=== PATIENT | female | born 1955 | race Caucasian/White ===

== ENCOUNTER 2017-08-03 16:49 | Emergency (ER) | payer OTHER ==
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
[2017-08-03 18:41] VITALS: BP 166/86
== END 2017-08-03 18:43 | disposition home or self-care (01) ==
LOC: EDUNIT#
DX: S49.91XA Unspecified injury of right shoulder and upper arm, initial encounter (principal); S09.90XA Unspecified injury of head, initial encounter; I10 Essential (primary) hypertension; V49.40XA Driver injured in collision with unspecified motor vehicles in traffic accident, initial encounter; Y92.410 Unspecified street and highway as the place of occurrence of the external cause; Y99.8 Other external cause status; Y93.89 Activity, other specified

== ENCOUNTER → 2017-11-24 | Outpatient (CLI) | payer OTHER ==
[~2017-11-24] MED LIST: IOPAMIDOL (ISOVUE 370) 100 ML BTL IV ONE
== END ==
LOC: FIMAGING 10:53
PROVIDERS: ATTEND Internal Medicine Cardiovascular Disease
DX: Z01.810 Encounter for preprocedural cardiovascular examination (principal); I48.91 Unspecified atrial fibrillation; E04.1 Nontoxic single thyroid nodule; N63.20 Unspecified lump in the left breast, unspecified quadrant
CPT/HCPCS: Q9967

== ENCOUNTER → 2017-11-30 | Outpatient (CLI) | payer OTHER | LOC: BRMIMAGING 13:58 | DX: E04.2 Nontoxic multinodular goiter (principal) ==

== ENCOUNTER 2018-03-02 07:15 | Observation (INO) | payer OTHER ==
[2018-03-02] MEDS ORDERED: NS 1,000 ML IV ONE (07:16)
[2018-03-02 07:58] LABS: PLATELET COUNT 205 10^3/uL (150-400)
[2018-03-02] MEDS ORDERED: IOPAMIDOL (ISOVUE-300) 100 ML BTL ONE ×2 (07:59→10:33)
[2018-03-02] MEDS ORDERED: LIDOCAINE 1% 300 MG/30 ML SDV ONE (07:59)
[2018-03-02] MEDS ORDERED: BUPIVACAINE 0.75% 10 ML SDV ONE (07:59)
[2018-03-02] MEDS ORDERED: HEPARIN 10,000 UNIT/10 ML MDV (1,000 UNIT/ML) ONE (07:59)
[2018-03-02] MEDS ORDERED: HEPARIN/DEXTROSE 25,000 UNIT/500 ML BAG ONE (08:00)
[2018-03-02 08:09] LABS: INR 0.95 (0.83-1.16); PROTIME(PATIENT) 12.9 SEC (12.0-15.0)
--- NOTE | 2018-03-02 08:23 | PDGENHP ---
History & Physical Chief Complaint: afib, symptomatic Relevant Physical Exam: s1s2 rrr cta ao3 Cardiorespiratory Assessment: for igor and afib ablation
--- NOTE | 2018-03-02 08:39 | PDANEPAE ---
ANE History of Present Illness parox a-fib s/f ablation ANE Past Medical History - Cardiovascular History Hx Hypertension: Yes Hx Palpitations: Yes Cardiovascular History Comment: a fib - Pulmonary History Hx Oxygen in Use at Home: No Hx Sleep Apnea: No - Endocrine History Hx Diabetes: No Endocrine History Comment: dyslipidemia ANE Review of Systems Review of Systems: - Exercise capacity Exercise capacity: >=4 METS ANE Patient History - Allergies Allergies/Adverse Reactions: No Known Allergies Allergy (Verified 02/23/18 10:40) - Home Medications Home medications: home medication list seen and reviewed Home Medications: Atorvastatin Calcium [Lipitor 40 mg (*)] 40 mg PO HS 11/24/17 [Last Taken Unknown] Lisinopril [Zestril 10 mg (*)] 10 mg PO HS 11/24/17 [Last Taken Unknown] Metoprolol Tartrate [Lopressor 25 mg (*)] 25 mg PO BID 11/24/17 [Last Taken Unknown] Rivaroxaban [Xarelto] 20 mg PO HS 11/24/17 [Last Taken Unknown] Clindamycin 1% [Cleocin 1%] 1 ml TP BID PRN 02/23/18 [Last Taken Unknown] Triamcinolone 0.1% [Triamcinolone 0.1% Cream (*)] 1 alfredo TP BID PRN 02/23/18 [ Last Taken Unknown] - NPO status NPO Status: no food or drink >8 hours - Anes Hx Anes Hx: no prior problems - Smoking Hx Smoking Status: Former smoker - Alcohol Use Alcohol Use: None - Family Anes Hx Family Anes Hx: none ANE Labs/Vital Signs - Labs Result Diagrams: 03/02/18 07:40 03/02/18 07:40 - Vital Signs Height: 155 cm Weight: 83.9 kg ANE Physical Exam - Airway Neck exam: FROM Mallampati Score: Class 2 - Pulmonary Pulmonary: no respiratory distress - Cardiovascular Cardiovascular: regular rate and rhythym - ASA Status ASA Status: III ANE Anesthesia Plan Anesthesia Plan: general endotracheal anesthesia
[2018-03-02] MEDS ORDERED: PROPOFOL/EMULSION 500 MG/50 ML BOTTLE IV ONE ×2 (08:50→10:12)
[2018-03-02] MEDS ORDERED: REMIFENTANIL HCL 1 MG VIAL ONE ×2 (08:50→10:12)
[2018-03-02] MEDS ORDERED: fentaNYL 100 MCG/2 ML INJ ONE ×2 (08:50→12:09)
[2018-03-02] MEDS ORDERED: ePHEDrine SULFATE 25 MG/5 ML SYR ONE ×2 (09:01→11:05)
[2018-03-02] MEDS ORDERED: DEXAMETHASONE 4 MG/ML VIAL ONE (09:13)
--- NOTE | 2018-03-02 11:02 | CPEKG ---
Test Reason : OPEN Blood Pressure : / mmHG Vent. Rate : 074 BPM Atrial Rate : 075 BPM P-R Int : 154 ms QRS Dur : 093 ms QT Int : 391 ms P-R-T Axes : 026 015 037 degrees QTc Int : 434 ms Sinus rhythm Confirmed by Gary Cm ([id number]) on 03/02/2018 11:02:02 AM Referred By: Confirmed By:Gary Cm
[2018-03-02] MEDS ORDERED: ONDANSETRON 4 MG/2 ML VIAL ONE ×2 (11:09→12:03)
[2018-03-02] MEDS ORDERED: PROTAMINE SULFATE 50 MG/5 ML VIAL IVP ONE (11:13)
--- NOTE | 2018-03-02 11:25 | EPPROC ---
Electrophysiology Procedure Note: ELECTROPHYSIOLOGIC STUDY AND BALLOON-CATHETER MEDIATED CRYOABLATION FOR PAROXYSMAL ATRIAL FIBRILLATION Procedures performed: 45127-77 EP evaluation with RA/RV/LA pace/record, with arrhythmia induction 93902-02 EP evaluation with RA/RV pace record, insert/reposition catheter, with arrhythmia induction 92790 Atrial fibrillation ablation Intracardiac echocardiogram Transseptal puncture Fluoroscopy INDICATION: Paroxysmal atrial fibrillation PROCEDURE: The patient arrived in the Electrophysiology Laboratory in the fasting state. The right groin, left groin and right infraclavicular area were prepped and draped in the usual sterile fashion. Anesthesiologist administered general anesthesia Dr. Shelly Strange . All catheters were placed percutaneously using the Seldinger technique and advanced into position under fluoroscopic guidance. One #7 [place] deflectable octapolar electrode catheter was placed in the His-bundle position via the left femoral vein (2mm spacing, IVC electrode for unipolar recordings). This catheter was placed in the coronary sinus after transseptal puncture and later placed in the SVC-R subclavian vein junction to pace the right phrenic nerve during right pulmonary vein ablation. One #8 [place] AcuNaV ultrasound catheter was placed in the left femoral vein and advanced into the right atrium. One #4 [place] sheath was inserted into the left femoral artery via percutaneous technique and used for continuous arterial blood pressure monitoring and intermittent ACT determination. Programmed stimulation was performed from the right atrium, left atrium (CS) and right ventricle. There was no evidence of AV accessory pathway. Intracardiac echo evaluation of the left atrium and pulmonary veins was performed. Baseline ACT was drawn and heparin bolus was administered and heparin drip was started prior to transseptal puncture. ACT was checked every 15 minutes and maintained in the range of 350-400 seconds. One 14Fr short sheath was placed in the right femoral vein. One 8Fr SL1 sheath was advanced into the right atrium via the 14Fr short sheath. Transseptal puncture was performed under intracardiac ultrasound, fluoroscopic and hemodynamic guidance placing the sheath into the left atrium. [place] RF needle ( C0 curve) was used. The mean left atrial pressure was 10 mmHg. Pulmonary vein angiogram was done using SL1 sheath. CT angiography of pulmonary veins was done previously. There were distinct LSPV, LIPV, RSPV and RIPV. The SL1 sheath was exchanged for a Knock Knocktronic Flexcath sheath using an Amplatz stiff guide wire. A 28 mm Cryoballoon catheter with a 20 mm Achieve catheter was placed via the sheath into the left atrium. Intracardiac ultrasound and PV angiograms were used to assist in placing the mapping catheter at the antrum of the pulmonary veins. All pulmonary veins were isolated successfully using cryoballoon ablation using freeze/thaw/freeze cycles at 2-3-minute intervals, with good [id number] of isolation. Coumadin ridge/Ligament of Sree region was ablated. Pre and post pulmonary vein recordings were measured on the spiral Achieve catheter to ensure complete pulmonary vein isolation. During the right-sided ablation, phrenic nerve pacing was performed to assess the phrenic nerve strength ( manually and with ICE visualization of liver movement during phrenic capture) and the phrenic nerve was intact throughout the right-sided ablation and at the end of the procedure. Placement of CB in LSPV and LIPV was difficult due to small atrial size. An esophageal temperature probe (12 electrode, Circa) was placed by the anesthesiologist at the beginning of the procedure. Esophageal temperature was monitored continuously and cryoablation was interrupted if esophageal temperature was <15 C. Cryoapplications 19 total cryoablation time 2320 s. ICE imaging post ablation was consistent with pre ablation imaging with no changes noted, moreover there was no left atrial/left ventricular thrombus and no pericardial effusion. The catheters were withdrawn. Protamine was given. Venous vascular access sheaths were removed in the EP lab after placing subcutaneous pursestring suture. Arterial sheath was left in place. The patient was recovered from anesthesia. There were no complications. The patient was arousable and moving all four extremities at the end of the procedure. CONCLUSIONS: 1. Paroxysmal atrial fibrillation. 2. Successful pulmonary vein isolation procedure (left and right pulmonary vein antrum) using cryoballoon ablation. 3. No apparent complications. Patient Problems: Problems Problem Status Onset Atrial fibrillation Acute
[2018-03-02] MEDS ORDERED: TRIAMCINOLONE 0.1% 15 GM CRTUBE TP PRN (11:27)
[2018-03-02] MEDS ORDERED: CLINDAMYCIN 1% 60 ML LOTION TP PRN (11:27)
[2018-03-02] MEDS ORDERED: ACETAMINOPHEN 500 MG TAB PO PRN (12:01)
[2018-03-02] MEDS ORDERED: METOCLOPRAMIDE 10 MG/2 ML VIAL IVP PRN (12:01)
[2018-03-02] MEDS ORDERED: fentaNYL 100 MCG/2 ML INJ IVP PRN (12:01)
[2018-03-02] MEDS ORDERED: MEPERIDINE 25 MG/0.5 ML AMP IVP PRN (12:01)
[2018-03-02] MEDS ORDERED: NS 500 ML IV PRN (12:01)
[2018-03-02] MEDS ORDERED: NALOXONE HCL 0.4 MG/ML INJ IVP PRN (12:01)
[2018-03-02] MEDS ORDERED: PROMETHAZINE HCL 25 MG/ML INJ IVP PRN (12:01)
[2018-03-02] MEDS ORDERED: ALBUTEROL 3 ML DEYVIAL IH PRN (12:01)
[2018-03-02] MEDS ORDERED: PHENYLEPHRINE HCL 100 MCG/ML SYR IVP PRN (12:01)
[2018-03-02] MEDS ORDERED: ONDANSETRON 4 MG/2 ML VIAL IVP PRN (12:01)
[2018-03-02] MEDS ORDERED: LR 500 ML IV PRN (12:01)
[2018-03-02] MEDS ORDERED: DEXAMETHASONE 4 MG/ML VIAL IVP PRN (12:01)
--- NOTE | 2018-03-02 12:02 | POSTANESTH ---
Post Anesthetic Evaluation Cardiovascular Status: Normal, Stable Respiratory Status: Normal, Stable Level of Consciousness/Mental Status: Can Participate in Eval Pain Control: Adequate, Prn Tx Ordered Nausea/Vomiting Control: Adequate, Prn Tx Ordered Complications Possibly Related to Anesthesia: None Noted
--- NOTE | 2018-03-02 15:56 | CPEKG ---
Test Reason : OPEN Blood Pressure : / mmHG Vent. Rate : 097 BPM Atrial Rate : 098 BPM P-R Int : 162 ms QRS Dur : 093 ms QT Int : 392 ms P-R-T Axes : 025 072 048 degrees QTc Int : 498 ms Sinus rhythm Confirmed by Gary Cm ([id number]) on 03/02/2018 3:55:39 PM Referred By: Confirmed By:Gary Cm
[2018-03-02] MEDS ORDERED: ACETAMINOPHEN 325 MG TAB PO PRN (18:17)
[2018-03-02] MEDS: METOPROLOL TARTRATE 25 MG TAB PO SCH (20:42)
[2018-03-02] MEDS ORDERED: LISINOPRIL 10 MG TAB PO SCH (21:00)
[2018-03-02] MEDS ORDERED: RIVAROXABAN 20 MG TAB PO SCH (21:00)
[2018-03-02] MEDS ORDERED: ATORVASTATIN CALCIUM 40 MG TAB PO SCH (21:00)
[2018-03-03 04:57] LABS: PLATELET COUNT 207 10^3/uL (150-400)
[2018-03-03 05:08] VITALS: BP 112/67
[2018-03-03] MEDS ORDERED: PANTOPRAZOLE SODIUM 40 MG TAB PO SCH (09:00)
[2018-03-03] MEDS: METOPROLOL TARTRATE 25 MG TAB PO SCH (09:02)
--- NOTE | 2018-03-03 09:57 | CPEKG ---
Test Reason : OPEN Blood Pressure : / mmHG Vent. Rate : 090 BPM Atrial Rate : 091 BPM P-R Int : 139 ms QRS Dur : 091 ms QT Int : 350 ms P-R-T Axes : 004 015 029 degrees QTc Int : 429 ms Sinus rhythm Borderline T abnormalities, anterior leads Confirmed by Gary Cm ([id number]) on 03/03/2018 9:57:00 AM Referred By: Confirmed By:Gary Cm
--- NOTE | 2018-03-03 10:56 | ECHO ---
[email or web address] [address] Main: [phone] Fax: Transthoracic Echocardiogram Name: LATESHA BLACK MR#: [id number] Study Date: 03/03/2018 Study Time: 09:40 AM Date of : 1955 Age: 62 year(s) Height: 152.4 cm (60 in.) Weight: 83.46 kg (184 lb.) BSA: 1.8 m2 Gender: Female Examination: Echo Indication: F/U post EP study Image Quality: Adequate Contrast: Requested by: Manolo Peguero BP: / Heart Rate: Rhythm: Indication: F/U post EP study Procedure Staff Nicker: Maritza Ferro RDCS Reading Physician: Manolo Peguero MD Requesting Provider: Conclusions: Normal global systolic LV function. The ejection fraction is estimated to be 65-70 %. MV posterior leaflet is mildly calcified.. No pericardial effusion. Measurements: Chambers Valvular Assessment AV/MV Valvular Assessment TV/PV Normal Normal Normal Name Value Range Name Value Range Name Value Range Ao Anne Marie (MM): 3.3 cm (2.2 cm-3.7 AV Vmax: 1.21 m/s (1 m/s-1.7 cm) m/s) IVSd (2D): 1.1 cm (0.6 cm-1.1 AV meanP mmHg ( - ) cm) MV E Vmax: 0.86 m/s ( - ) LVDd (2D): 4.4 cm (3.9 cm-5.3 MV A Vmax: 0.70 m/s ( - ) cm) MV E/A: 1.23 ( - ) LVPWd (2D): 0.9 cm ( - ) LVEF (BP): 74 % (>=55 %) EF Range: 65-70 % Continued Measurements: Chambers Valvular Assessment AV/MV Name Value Name Value LADs: 4.1 cm MV E' Septal: 0.06 m/s LADs Lon.8 cm MV E/E' Septal: 13.80 LA Area: 17.3 cm2 MV E/E' Lateral: 12.70 LA Volume: 49 ml LA Volume Index: 27.2 ml/m2 Patient: LATESHA BLACK Study Date: 03/03/2018 Page 1 of 2 09:40 AM Additional Vessels Name Value Ao Ascendin.3 cm Findings: Left Ventricle: Normal size left ventricle. No LV hypertrophy. Normal global systolic LV function. The ejection fraction is estimated to be 65-70 %. No regional wall motion abnormality. Normal diastolic LV function. Right Ventricle: Normal size right ventricle. Left Atrium: The left atrium is normal in size. Right Atrium: The right atrium is normal in size. Mitral Valve: Trivial mitral valve regurgitation. MV posterior leaflet is mildly calcified.. Aortic Valve: The aortic valve is normal in appearance and function. Tricuspid Valve: The tricuspid valve is normal in appearance and function. Trivial tricuspid valve regurgitation. Pulmonic Valve: The pulmonic valve is normal in appearance and function. Trivial pulmonic valve regurgitation. Aorta: The aorta is normal. Pericardium: No pericardial effusion. There is pericardial fat. Exam Comments: Ectopy visualized throughout entire echo.. (No Signature Object) Patient: LATESHA BLACK Study Date: 03/03/2018 Page 2 of 2 09:40 AM [id number]
--- NOTE | 2018-03-03 17:50 | GDS ---
SUPERVISING [employer] MECHANIC: Manolo Peguero MD ADMISSION DIAGNOSES: Atrial fibrillation. DISCHARGE DIAGNOSES: Atrial fibrillation status post cryo balloon pulmonary vein isolation. PROCEDURES PERFORMED: 1. Electrocardiogram. 2. Echocardiogram. 3. Electrophysiology study. 4. Balloon catheter mediated cryo balloon ablation for paroxysmal atrial fibrillation. HOSPITAL COURSE: Patient presented March 02, 2018, for atrial fibrillation ablation in the setting of increasingly symptomatic and increasingly frequent episodes of paroxysmal atrial fibrillation. S he underwent successful balloon mediated cryo balloon ablation with Dr. Manolo Peguero without intra proc edure complications. She has done very well in the postprocedure setting and has been ambulating kevon und her room this morning without issue. She did have 1 very brief episode of atrial arrhythmia this morning lasting 2-3 beats on telemetry. She has otherwise been in normal sinus rhythm overnight. S he is appropriate and stable for discharge home today. CURRENT PHYSICAL EXAMINATION: GENERAL: She is alert and oriented x4, in no apparent distress. VITAL SIGNS: Blood pressure 112/67, heart rate 88, SpO2 98% on room air. Respiratory rate 16, temp 36.7. RESPIRATORY: Lungs are clear to auscultation without adventitious breath sounds. CARDIAC: Normal S1 and S2, no S3, S4, murmurs. Rhythm is regular. ABDOMEN: Normoactive bowel sounds times all [address], no masses or tenderness. ABDOMEN: Soft. SKIN: [place], warm, dry without cyanosis, clubbing, or peripheral edema. EXTREMITIES: Bilateral pursestring sutures removed intact. Right groin site wi th mild oozing that resolved with 5 minutes of pressure. No evidence of hematoma, no swelling. Puls es 2+ bilaterally, no edema. LABORATORY STUDIES: Drawn today. CBC and BMP are stable compared to preprocedure aside from her WBC s which are 14.88. Troponin 7.920. Elevated WBCs and troponin are to be expected in the postprocedu re setting. PROCEDURE: Electrophysiology study and cryo balloon pulmonary vein isolation as mentioned above. Preliminary echocardiogram this morning demonstrates normal left ventricular systolic function withou t new wall motion abnormalities or pericardial effusion. Electrocardiogram this morning demonstrates normal sinus rhythm without new ST-T wave or P-R interval abnormalities. DISCHARGE DISPOSITION: The patient will be discharged home in stable condition. She is under activi ty restrictions as below. DISCHARGE MEDICATIONS: Please see discharge medication reconciliation sheet for full details. Please note that the patient has been restarted on her Xarelto and she will also continue omeprazole or Prilosec for the next 6 weeks. DISCHARGE INSTRUCTIONS: Post atrial fibrillation ablation instructions reviewed with patient in [facility]. We discussed activity restrictions including lifting no more than 10 pounds and avoid submerged bathing for 10 days. She will get up and walk around every 45 minutes for 45 days. She will avoid p ressurized air travel or scuba diving for the next 6 months and will present to our clinic for an ech ocardiogram prior to engaging in either of these activities. We also reviewed bleeding precautions, medication compliance, monitoring for signs and symptoms of infection, monitoring for symptoms of atr ial esophageal fistula, and monitoring for sustained arrhythmia. At the time of discharge, patient edil erbalizes understanding of all discharge instructions without questions or concerns. She will follow up in 3-4 weeks as scheduled and contact our clinic with any new or concerning symptoms prior to her upcoming visit. Greater than 30 minutes spent on this discharge. /[id number]
== END 2018-03-03 12:37 | disposition home or self-care (01) ==
LOC: FCATH 07:15 → F2N 11:26
PROVIDERS: ADMIT Internal Medicine Cardiovascular Disease; ATTEND Internal Medicine Cardiovascular Disease
DX: I48.0 Paroxysmal atrial fibrillation (principal); E78.5 Hyperlipidemia, unspecified
CPT/HCPCS: 93005; 93306; 93312; 93613; 93656; 93662; C1893; G0378; C1730; C1731; C1732; C1733; C1759; C1766; J1100; J1644; J2405; J2550; J2704; J2720; J3010; Q9967

== ENCOUNTER 2018-03-07 12:40 | Emergency (ER) | payer OTHER ==
[2018-03-07] MEDS ORDERED: NS 1,000 ML IV ONE (13:15)
--- NOTE | 2018-03-07 13:32 | EDPHY ---
H & P Stated Complaint: flashes r eye for a few minutes/had cardiac ablation thursday Time Seen by Provider: 03/07/18 12:57 HPI/ROS: CHIEF COMPLAINT: Floater, flashes in the right eye HISTORY OF PRESENT ILLNESS: This is a 62-year-old female with history of paroxysmal atrial fibrillation, who had an ablation on March 02, 5 days ago. Patient's discharge summary indicates a brief, 2-3 beat, period of atrial arrhythmia prior to discharge. Patient has been at home since that time doing well. She reports today developing an abrupt onset of a shimmery floater in the superior lateral visual field of the right eye. The patient is relatively confident that this finding was present only in the right eye. Symptoms lasted several minutes and then stopped on its own. She reports no headache, neck pain , numbness or tingling in the face, weakness in the arms or legs, speech difficulty, or numbness or tingling on the face. Patient has been taking Xarelto as directed since the ablation. She also was on Xarelto prior the ablation. Otherwise well, denies chest pain, shortness of breath, vomiting, diarrhea, headache, lightheadedness, dizziness. Denies any other neurologic complaints. Patient reports that she was told to expect intermittent arrhythmias even after the ablation. REVIEW OF SYSTEMS: A comprehensive 10 system review of systems was reviewed and is otherwise negative aside from elements mentioned in the history of present illness and medical decision making. PAST MEDICAL HISTORY: Hypertension, high cholesterol, paroxysmal atrial fibrillation, status post ablation 5 days ago, on Xarelto. SOCIAL HISTORY: Here with her . VITAL SIGNS Reviewed by me. Heart rate 143, atrial fibrillation, on the initial EKG. GENERAL: Well-developed, well-nourished, resting comfortably in no respiratory distress. Pleasant, conversant. HEENT: Atraumatic. Eyes: No icterus, no injection. EOMI, pupils equal round reactive to light, funduscopic exam bilaterally reveals sharp disc. Visual haile intact to direct confrontation. Mouth: moist mucous membranes. No erythema or lesions. Neck: supple with no adenopathy. No carotid bruit. LUNGS: Clear to auscultation bilaterally, no wheezes, rhonchi or rales. CARDIAC: Irregularly irregular, tachycardic, no rubs, murmurs or gallops. ABDOMEN: Soft, nontender, nondistended, bowel sounds normal. BACK: No CVA tenderness. EXTREMITIES: No trauma. No edema. Range of motion is normal throughout. NEURO: Alert and oriented, cranial nerves 2-12 are intact. Motor strength 5/ 5 throughout. Sensation intact on the face in all extremities. No speech difficulties. SKIN: Warm and dry, no rash. PSYCHIATRIC: Normal mentation, no agitation. - Personal History Current Tetanus Diphtheria and Acellular Pertussis (TDAP): Yes - Medical/Surgical History Hx Asthma: No Hx Chronic Respiratory Disease: No Hx Diabetes: No Hx Cardiac Disease: Yes Hx Renal Disease: No Hx Cirrhosis: No Hx Alcoholism: No Hx HIV/AIDS: No Hx Splenectomy or Spleen Trauma: No Other PMH: htn, high cholesterol, a-fib, bilat knee replacement, hysterectomy, carpel tunnel surgery, afib ablation - Social History Smoking Status: Former smoker Constitutional: Initial Vital Signs Temperature (C) 36.7 C 03/07/18 12:44 Heart Rate 91 03/07/18 12:44 Respiratory Rate 18 03/07/18 12:44 Blood Pressure 139/72 H 03/07/18 12:44 O2 Sat (%) 96 03/07/18 12:44 O2 Delivery Mode Room Air Allergies/Adverse Reactions: No Known Allergies Allergy (Verified 03/07/18 12:41) Home Medications: Medication Instructions Recorded Atorvastatin Calcium [Lipitor 40 40 mg PO HS 11/24/17 mg (*)] Lisinopril [Zestril 10 mg (*)] 10 mg PO HS 11/24/17 Metoprolol Tartrate [Lopressor 25 25 mg PO BID 11/24/17 mg (*)] Rivaroxaban [Xarelto] 20 mg PO HS 11/24/17 Clindamycin 1% [Cleocin 1% Lotion] 1 ml TP BID PRN 02/23/18 Triamcinolone 0.1% [Triamcinolone 1 alfredo TP BID PRN 02/23/18 0.1% Cream (*)] Pantoprazole Sodium [Protonix 40mg 40 mg PO DAILY tab 03/03/18 (*)] Rivaroxaban [Xarelto] 20 mg PO HS tab 03/03/18 Medical Decision Making - Diagnostics EKG Interpretation: 12-LEAD EKG: Please see the full report in [facility]. My interpretation: atrial flutter/atrial fibrillation. Imaging Results: Impression: Stable negative noncontrast CT of the brain. Results called to Dr. Daley at 1:50 PM at the time of the interpretation. Dictated By: Jorge Luis Hood MD Imaging: Discussed imaging studies w/ dish stacker Radiologist ED Course/Re-evaluation: Atrial fibrillation/ flutter present on monitor during my initial evaluation. CT scan ordered; normal. The bedside troponin positive at 0.37. Patient's troponin the day after procedure was 7.92. Will check a lab troponin for comparison. Lab troponin 0.385. Feel troponin is trending downwards appropriately; patient without CP or SOB complaints. The remainder of the patient's labs were normal. Discussed with her at length MRI to evaluate for occipital stroke. Patient is very wary of doing an MRI at this point. Call placed to opthomology, Dr Bean; discussed with him at length. Aware of patients PMH and recent procedure. His impression was that this represented an occipital migraine. No need for further opthomologic evaluation at this time. Discussed close follow up with patient. She understands that if the symptoms recur, or new symptoms develop, she should seek care urgently. She will follow up with PCP and/or opthomology as needed. Patient noted to be in NSR on the monitor prior to discharge. Differential Diagnosis: Differential diagnoses the patient's presenting complaints was considered including but not limited to intracranial hemorrhage, TIA, ischemic cerebrovascular accident, hemorrhagic cerebrovascular accident, hypoglycemia, complex migraine, metastases, tumor, seizure, or electrolyte abnormality - Data Points Laboratory Results: Laboratory Results 03/07/18 11:31 03/07/18 11:31 Medications Given: Discontinued Medications Sodium Chloride (Ns) 1,000 mls @ 500 mls/hr IV EDNOW ONE PRN Reason: Protocol Stop: 03/07/18 15:14 Last Admin: 03/07/18 13:23 Dose: 1,000 mls Point of Care Test Results: Chemistry 03/07/18 13:12 POC Troponin I 0.37 ng/mL H ng/mL (0.00-0.08) Departure - Departure Disposition: Home, Routine, Self-Care Clinical Impression: Ocular migraine Atrial fibrillation Qualifiers: Atrial fibrillation type: paroxysmal Qualified Code(s): I48.0 - Paroxysmal atrial fibrillation Condition: Good Instructions: Visual Floaters (ED), Ocular Migraine (ED) Additional Instructions: Your evaluation today is reassuring. The electrician powerhouse feels confident that this represented an ocular migraine. You may follow up with your dairy farm manager as previously directed. Follow up with your electrician powerhouse or rock crushing machine operator if you continue to have concerns regarding visual floaters or shimmering visual changes. Please follow up with your primary care physician regarding prior positive test. Referrals: URIEL WALTON [Other] - As per Instructions
[2018-03-07 13:34] LABS: PLATELET COUNT 259 10^3/uL (150-400)
[2018-03-07 13:45] LABS: INR 1.16 (0.83-1.16)
[2018-03-07 15:03] VITALS: BP 112/92
--- NOTE | 2018-03-08 06:40 | CPEKG ---
Test Reason : OPEN Blood Pressure : / mmHG Vent. Rate : 145 BPM Atrial Rate : 313 BPM P-R Int : 112 ms QRS Dur : 084 ms QT Int : 292 ms P-R-T Axes : 006 040 017 degrees QTc Int : 454 ms Sinus tachycardia Low voltage, precordial leads Repol abnrm suggests ischemia, inferior leads Minimal ST elevation, lateral leads Confirmed by Radhames Blair ([id number]) on 03/08/2018 6:40:34 AM Referred By: Confirmed By:Radhames Blair
== END 2018-03-07 15:02 | disposition home or self-care (01) ==
DX: G43.819 Other migraine, intractable, without status migrainosus (principal); H43.391 Other vitreous opacities, right eye; I48.0 Paroxysmal atrial fibrillation; I10 Essential (primary) hypertension; E78.00 Pure hypercholesterolemia, unspecified; E86.9 Volume depletion, unspecified; Z79.01 Long term (current) use of anticoagulants; Z87.891 Personal history of nicotine dependence
CPT/HCPCS: 84484-ER

== ENCOUNTER → 2018-07-27 | Outpatient (CLI) | payer OTHER | LOC: BRMIMAGING 08:00 ==